=== PATIENT | female | born 1950 | race Caucasian/White ===

== ENCOUNTER 2020-07-29 08:02 | Emergency (ER) | payer MEDICARE ==
[~2020-07-29] VITALS: Ht 175.2 cm; Wt 81.6 kg
[~2020-07-29 08:02] MED LIST: HYDROCODONE BIT1 T11 PO; NORFLEX100 MG PO; VICODIN ES 7501 TAB PO
[2020-07-29] MEDS ORDERED: TYLENOL325 M1 PO (10:35)
[2020-07-29] MEDS ORDERED: NAPROXEN250 MG PO (10:35)
[2020-07-29] MEDS ORDERED: CYCLOBENZAPRINE5 M3 PO (10:35)
== END 2020-07-29 10:53 | disposition home or self-care (01) ==
LOC: ED 08:02
DX: M54.5 Low back pain (principal); F32.9 Major depressive disorder, single episode, unspecified; Z88.2 Allergy status to sulfonamides; Z79.899 Other long term (current) drug therapy